=== PATIENT | female | born 1995 | race African-American/Black ===

== ENCOUNTER 2018-09-11 16:06 | Emergency (ER) | payer BC ==
--- NOTE | 2018-09-11 16:29 | EDM.PDOC ---
ED HPI GENERAL MEDICAL PROBLEM - General Chief Complaint: Flank Pain Stated Complaint: LOW BACK PAIN Time Seen by Provider: 09/11/18 16:22 - History of Present Illness INITIAL COMMENTS - FREE TEXT/NARRATIVE: HISTORY AND PHYSICAL: History of present illness: Patient a 22-year-old black female with history of intermittent back pain for which she's been evaluated prior including MRI presents with concern of bilateral lower back pain she denies urinary symptoms she denies any chance of and no numbness weakness incontinence or retention of bowel or bladder Review of systems: As per history of present illness and below otherwise all systems reviewed and negative. Past medical history: As per history of present illness and as reviewed below otherwise noncontributory. Surgical history: As per history of present illness and as reviewed below otherwise noncontributory. Social history: No reported history of drug or alcohol abuse. Family history: As per history of present illness and as reviewed below otherwise noncontributory. Physical exam: HEENT: Atraumatic, normocephalic, pupils reactive, negative for conjunctival pallor or scleral icterus, mucous membranes moist, throat clear, neck supple, nontender, trachea midline. Lungs: Clear to auscultation, breath sounds equal bilaterally, chest nontender. Heart: S1S2, regular, negative for clicks, rubs, or JVD. Abdomen: Soft, nondistended, nontender. Negative for masses or hepatosplenomegaly. Negative for costovertebral tenderness. Pelvis: Stable nontender. Genitourinary: Deferred. Rectal: Deferred. Extremities: Atraumatic, negative for cords or calf pain. Neurovascular unremarkable. Neuro: Awake, alert, oriented. Cranial nerves II through XII unremarkable. Cerebellum unremarkable. Motor and sensory unremarkable throughout. Exam nonfocal. Back: Patient is some mild paravertebral tenderness at the level of the lumbar spine no vertebral body or point tenderness patient able to stand on her toes back on her heels motor and sensory are normal Diagnostics: UA Therapeutics: None Impression: #1 low back pain probable muscle skeletal etiology Definitive disposition and diagnosis as appropriate pending reevaluation and review of above. ED ROS GENERAL - Review of Systems Review Of Systems: ROS reveals no pertinent complaints other than HPI. ED EXAM, GENERAL - Physical Exam Exam: See Below (See dictation) Course - Orders/Labs/Meds Orders: Active Orders 24 hr Category Date Time Status HCG QUALITATIVE,URINE [URCHEM] Stat Lab 09/11/18 16:21 Ordered UA RFX DONTRELL AND CULT IF INDIC [URIN] Stat Lab 09/11/18 16:24 Ordered Departure - Departure Time of Disposition: 16:29 Disposition: Home, Self-Care 01 Condition: Good Clinical Impression: Back pain - Discharge Information Referrals: PCP,Not In Area [Primary Care Provider] - - My Orders Last 24 Hours: My Active Orders 09/11/18 16:24 UA RFX DONTRELL AND CULT IF INDIC [URIN] Stat - Assessment/Plan Last 24 Hours: My Active Orders 09/11/18 16:24 UA RFX DONTRELL AND CULT IF INDIC [URIN] Stat
== END 2018-09-11 17:33 | disposition home or self-care (01) ==
LOC: MW.ED 16:06
DX: M54.5 Low back pain (principal)
CPT/HCPCS: 81003; 81025; 99283; 99284